=== PATIENT | female | born 1980 | race American Indian/Alaskan Native ===

== ENCOUNTER 2019-09-05 21:57 | Emergency (ER) | payer SELFPAY ==
[2019-09-05 23:21] LABS: Bilirubin,Urine NEG (Negative); Blood,Urine SM (Negative); Color,Urine Yellow (Yellow); Mucus,Urine 3+ /HPF; Protein,Urine <15 mg/dL mg/dL (Negative)
[2019-09-05 23:23] LABS: HCG Qualitative,Urine Negative (Negative)
[2019-09-06] MEDS ORDERED: KETOROLAC 30 MG/1 ML INJ IV ONE (01:00)
[2019-09-06] MEDS ORDERED: ONDANSETRON 4 MG/2 ML INJ IV ONE (01:00)
[2019-09-06] MEDS ORDERED: SODIUM CHLORIDE 0.9% 1000 ML 1,000 ML IV ONE (01:00)
[2019-09-06 01:43] LABS: Basophils % (Auto) 0.6 % (0.0-1.8); Eosinophils # (Auto) 0.1 K/mm3 (0.0-0.4); Eosinophils % (Auto) 1.1 % (0.0-4.3); Hematocrit 39.5 % (30.3-42.9); Hemoglobin 13.1 gm/dl (10.1-14.3); Lymphocytes # (Auto) 2.8 K/mm3 (1.2-5.4); Lymphocytes % (Auto) 39.7 % (13.4-35.0); Mean Corpuscular HGB Conc 33 % (30-34); Mean Corpuscular Volume 90 fl (79-97); Monocytes # (Auto) 0.5 K/mm3 (0.0-0.8); Monocytes % (Auto) 6.8 % (0.0-7.3); Platelet Count 167 K/mm3 (140-440); Red Blood Count 4.37 M/mm3 (3.65-5.03); Red Cell Distribution Width 15.1 % (13.2-15.2)
[2019-09-06 01:51] LABS: Alanine Aminotransferase 9 units/L (7-56); Albumin 4.6 g/dL (3.9-5); BUN/Creatinine Ratio 26; Blood Urea Nitrogen 13 mg/dL (7-17); Calcium 10.2 mg/dL (8.4-10.2); Hemolysis Index 10
[2019-09-06] MEDS ORDERED: metroNIDAZOLE 500 MG TAB PO ONE (03:02)
[2019-09-06] MEDS ORDERED: LIDOCAINE-MPF (1%) 10 MG/1 ML VIAL 5 ML INFILTRATI ONE (03:02)
[2019-09-06] MEDS ORDERED: ONDANSETRON 4 MG ODT TAB PO ONE (03:02)
[2019-09-06] MEDS ORDERED: HYDROcodone/ACETAMINOPHEN 7.5-325MG TAB PO ONE (03:04)
--- NOTE | 2019-09-06 04:03 | Emergency Department Report ---
<VERONICA PANDYA - Last Filed: 09/06/19 06:38> ED Female HPI - General Chief complaint: Urogenital-Female Stated complaint: PELVIC PAIN, VAG DC Source: patient Mode of arrival: Ambulatory Limitations: No Limitations - History of Present Illness Initial comments: Patient is a A4 39-year-old -Iranian female with no past medical history presents to the ED with complaint of acute onset persistent severe pelvic pain with nausea and headache for the last 2 weeks, worse in the last 2 days. Patient also complains of dyspareunia and vaginal discharge with urinary urgency and frequency. Patient denies dizziness, syncope, fever, chills, cough, change in vision, sore throat, cough, chest pain, shortness of breath, vomiting, vaginal bleeding or low back pain. MD Complaint: vaginal discharge, dysuria, pelvic pain -: Sudden, week(s) (2) Location: suprapubic, other (vaginal) Severity: severe Severity scale (0 -10): 8 Quality: sharp, aching Consistency: constant Improves with: none Worsens with: intercourse, movement Are you Now?: No Last Menstrual Period: 08/29/19 EDC: 06/04/20 Associated Symptoms: denies other symptoms, vaginal discharge, abdominal pain, dysuria. denies: vaginal bleeding, nausea/vomiting, fever/chills, loss of appetite, hematuria, rash, seizure, shortness of breath, syncope - Related Data Sexually active: Yes Previous Rx's Medication Instructions Recorded Last Taken Type Docusate Sodium [Colace CAP] 100 mg PO BID PRN #30 capsule 09/06/19 Unknown Rx Doxycycline Hyclate 100 mg PO Q12H #20 tablet. 09/06/19 Unknown Rx HYDROcodone/APAP 5-325 [[place] 1 each PO Q6HR PRN #12 tablet 09/06/19 Unknown Rx 5/325] Ibuprofen [Motrin] 600 mg PO Q8H PRN #24 tablet 09/06/19 Unknown Rx Ondansetron [Zofran Odt] 4 mg PO Q6HR PRN #15 tab.rapdis 09/06/19 Unknown Rx metroNIDAZOLE [Flagyl] 500 mg PO Q12HR #20 tab 09/06/19 Unknown Rx Allergies Allergy/AdvReac Type Severity Reaction Status Date / Time No Known Allergies Allergy Unverified 09/05/19 22:09 ED Review of Systems Constitutional: denies: chills, fever Eyes: denies: eye pain, eye discharge, vision change ENT: denies: ear pain, throat pain Respiratory: denies: cough, shortness of breath, wheezing Cardiovascular: denies: chest pain, palpitations Endocrine: no symptoms reported Gastrointestinal: abdominal pain (pelvic pain). denies: nausea, diarrhea Genitourinary: urgency, dysuria, frequency, discharge Musculoskeletal: denies: back pain, joint swelling, arthralgia Skin: denies: rash, lesions Neurological: headache. denies: weakness, paresthesias Psychiatric: denies: anxiety, depression Hematological/Lymphatic: denies: easy bleeding, easy bruising ED Past Medical Hx - Past Medical History Previous Medical History?: No - Surgical History Hx Appendectomy: Yes Additional Surgical History: LEEP - Social History Smoking Status: Never Smoker Substance Use Type: None - Medications Home Medications: Home Medications Medication Instructions Recorded Confirmed Last Taken Type Docusate Sodium [Colace CAP] 100 mg PO BID PRN #30 capsule 09/06/19 Unknown Rx Doxycycline Hyclate 100 mg PO Q12H #20 tablet. 09/06/19 Unknown Rx HYDROcodone/APAP 5-325 [[place] 1 each PO Q6HR PRN #12 tablet 09/06/19 Unknown Rx 5/325] Ibuprofen [Motrin] 600 mg PO Q8H PRN #24 tablet 09/06/19 Unknown Rx Ondansetron [Zofran Odt] 4 mg PO Q6HR PRN #15 tab.rapdis 09/06/19 Unknown Rx metroNIDAZOLE [Flagyl] 500 mg PO Q12HR #20 tab 09/06/19 Unknown Rx ED Physical Exam - General Limitations: No Limitations General appearance: alert, in no apparent distress - Head Head exam: Present: atraumatic, normocephalic, normal inspection - Eye Eye exam: Present: normal appearance, PERRL, EOMI Pupils: Present: normal accommodation - ENT ENT exam: Present: normal exam, normal orophraynx, mucous membranes moist, TM's normal bilaterally, normal external ear exam - Neck Neck exam: Present: normal inspection, full ROM - Respiratory Respiratory exam: Present: normal lung sounds bilaterally. Absent: respiratory distress, wheezes, rales, rhonchi, chest wall tenderness, accessory muscle use, decreased breath sounds, prolonged expiratory - Cardiovascular Cardiovascular Exam: Present: regular rate, normal rhythm, normal heart sounds. Absent: systolic murmur, diastolic murmur, rubs, gallop - GI/Abdominal GI/Abdominal exam: Present: soft, tenderness (Severe palpable suprapubic tenderness), guarding, normal bowel sounds. Absent: rebound, hyperactive bowel sounds, hypoactive bowel sounds, organomegaly - Speculum exam: Present: normal speculum exam, vaginal discharge, cervical discharge Bi-manual exam: Present: cervical motion tendernes, adnexal tenderness, uterine tenderness, other (Female RN present during pelvic exam) - Extremities Exam Extremities exam: Present: normal inspection, full ROM, normal capillary refill. Absent: pedal edema, joint swelling - Back Exam Back exam: Present: normal inspection, full ROM. Absent: tenderness, CVA tenderness (R), CVA tenderness (L), muscle spasm - Neurological Exam Neurological exam: Present: alert, oriented X3, CN II-XII intact, normal gait - Psychiatric Psychiatric exam: Present: normal affect, normal mood, anxious - Skin Skin exam: Present: warm, dry, intact, normal color. Absent: rash ED Medical Decision Making - Lab Data Result diagrams: 09/06/19 01:08 09/06/19 01:08 - Medical Decision Making This is a A4 39-year-old -Iranian female with no past medical history presents to the ED with complaint of acute onset persistent severe pelvic pain with nausea and headache for the last 2 weeks, worse in the last 2 days. Patient also complains of dyspareunia and vaginal discharge with urinary urgency and frequency. In the ED, patient is alert and oriented x3 and is not in any distress but anxious and appears to be in pain. Physical exam was executed exquisitely positive for acute PID with chandelier sign on pelvic exam chaperoned by a female RN Ms. Patel. Patient was treated for pain and also given normal saline 1 L IV bolus. Lab test results were reviewed and are all nonactionable. Wet prep results showed significant Gardnerella vaginalis. Patient also received empirical treatment for gonorrhea and chlamydia. On reevaluation, patient's pain is well controlled with medications. Patient was discharged home on pain medications, antibiotics for PID and was advised to follow-up with her primary care physician or [facility] physician in 7 to 10 days for reevaluation or return to the ED immediately if symptoms get worse. - Differential Diagnosis UTI; PID; STD; Pancreatitis; Tension headache ED Disposition Clinical Impression: Abdominal pain Qualifiers: Abdominal location: unspecified location Qualified Code(s): R10.9 - Unspecified abdominal pain Disposition: DC-01 TO HOME OR SELFCARE Is pt being admited?: No Does the pt Need Aspirin: No Condition: Stable Instructions: Pelvic Inflammatory Disease (ED), Bacterial Vaginosis (ED), Panc reatitis (ED), Acute Headache (ED) Additional Instructions: Take medication with food, drink plenty of fluids and follow-up with your primary care physician in 5 to 7 days for reevaluation. Return to the ED immediately if your symptoms get worse. Prescriptions: Docusate Sodium [Colace CAP] 100 mg PO BID PRN #30 capsule PRN Reason: Constipation Doxycycline Hyclate 100 mg PO Q12H #20 tablet.dr metroNIDAZOLE [Flagyl] 500 mg PO Q12HR #20 tab Ibuprofen [Motrin] 600 mg PO Q8H PRN #24 tablet PRN Reason: Pain HYDROcodone/APAP 5-325 [[place] 5/325] 1 each PO Q6HR PRN #12 tablet PRN Reason: Pain Ondansetron [Zofran Odt] 4 mg PO Q6HR PRN #15 tab.rapdis PRN Reason: Nausea Referrals: JOHANNY CALVIN MD [Staff Physician] - 3-5 Days Forms: STI Treatment and Prevention Time of Disposition: 04:09 Print Language: UPPER SORBIAN <CHIDI RODRÍGUEZ - Last Filed: 09/06/19 22:38> ED Review of Systems ROS: Stated complaint: PELVIC PAIN, VAG DC Other details as noted in HPI ED Course Vital Signs 09/05/19 09/06/19 22:07 04:15 Temperature 98.6 F Pulse Rate 74 78 Respiratory 18 18 Rate Blood Pressure 115/75 Blood Pressure 117/68 [Right] O2 Sat by Pulse 100 97 Oximetry ED Medical Decision Making - Lab Data Result diagrams: 09/06/19 01:08 09/06/19 01:08 Critical care attestation.: If time is entered above; I have spent that time in minutes in the direct care of this critically ill patient, excluding procedure time. ED Disposition Is pt being admited?: No Does the pt Need Aspirin: No
== END 2019-09-06 04:32 | disposition home or self-care (01) ==
LOC: ED 21:57
DX: R10.9 Unspecified abdominal pain (principal); R30.0 Dysuria; N89.8 Other specified noninflammatory disorders of vagina; Z90.49 Acquired absence of other specified parts of digestive tract; Z79.899 Other long term (current) drug therapy
CPT/HCPCS: 36415; 80053; 81001; 81025; 83690; 85025; 87210; 87591; 96372; 96374; 96375; 99284; J0696; J1885; J2405; J7030; Q0162

== ENCOUNTER 2020-04-12 21:17 | Emergency (ER) | payer SELFPAY ==
[2020-04-12 23:52] VITALS: BP 111/80
[2020-04-13 01:42] LABS: Basophils % (Auto) 0.6 % (0.0-1.8); Eosinophils # (Auto) 0.1 K/mm3 (0.0-0.4); Eosinophils % (Auto) 0.9 % (0.0-4.3); Hematocrit 39.2 % (30.3-42.9); Hemoglobin 12.9 gm/dl (10.1-14.3); Lymphocytes # (Auto) 2.4 K/mm3 (1.2-5.4); Lymphocytes % (Auto) 28.3 % (13.4-35.0); Mean Corpuscular HGB Conc 33 % (30-34); Mean Corpuscular Volume 90 fl (79-97); Monocytes # (Auto) 0.5 K/mm3 (0.0-0.8); Platelet Count 183 K/mm3 (140-440); Red Blood Count 4.36 M/mm3 (3.65-5.03); Red Cell Distribution Width 15.8 % (13.2-15.2)
[2020-04-13 01:46] LABS: Alanine Aminotransferase 9 units/L (7-56); Albumin 4.5 g/dL (3.9-5); Blood Urea Nitrogen 10 mg/dL (7-17); Hemolysis Index 9
[2020-04-13 01:47] LABS: BUN/Creatinine Ratio 20
[2020-04-13] MEDS ORDERED: ONDANSETRON 4 MG/2 ML INJ IV ONE ×2 (02:55→05:09)
[2020-04-13] MEDS ORDERED: SODIUM CHLORIDE 0.9% 1000 ML 1,000 ML IV ONE (02:55)
[2020-04-13] MEDS ORDERED: KETOROLAC 30 MG/1 ML INJ IV ONE (02:55)
--- NOTE | 2020-04-13 04:15 | Cat Scan Report ---
CT ABDOMEN AND PELVIS WITH IV CONTRAST INDICATION: Right lower quadrant abdominal pain TECHNIQUE: Following the administration of intravenous contrast, multiple axial CT images of the abdo men and pelvis were acquired. Sagittal and coronal reformats were obtained. All CT performed at this facility utilize dose reduction techniques including automated exposure control, iterative reconstru ction and weight based dosing when appropriate to reduce patient radiation dose to as low as reasonab ly achievable. COMPARISON: None FINDINGS: Limited imaging of the bilateral lung bases demonstrates no acute abnormality. ABDOMEN: The liver, gallbladder, spleen, pancreas, bilateral adrenal glands and bilateral kidneys show no evid ence of acute abnormality. The abdominal aorta is normal in caliber. There is no evidence of bowel ob struction or free fluid. The appendix is not visualized and there has likely been previous appendecto my. PELVIS: There is a trace amount of free fluid. There is a 1.4 cm left adnexal cyst. The urinary bladder appea rs normal. BONES AND SOFT TISSUES: Evaluation of bony structures demonstrates no evidence of acute bony abnormal ity. Soft tissue structures show no acute abnormality. IMPRESSION: 1. No CT evidence of acute inflammatory or obstructive process within the abdomen or pelvis. 2. Trace amount of free pelvic fluid which may be physiologic in a young female patient. Signer Name: Senait Ayon MD Signed: 04/13/2020 4:10 AM Workstation Name: [id number]
[2020-04-13 04:32] LABS: Bilirubin,Urine NEG (Negative); Blood,Urine NEG (Negative); Color,Urine Yellow (Yellow); Mucus,Urine 3+ /HPF; Protein,Urine <15 mg/dL mg/dL (Negative); Urobilinogen,Urine < 2.0 mg/dL (<2.0)
[2020-04-13] MEDS ORDERED: ONDANSETRON 4 MG/2 ML INJ ONE (05:05)
--- NOTE | 2020-04-13 05:22 | Emergency Department Report ---
ED Abdominal Pain HPI - General Chief Complaint: Abdominal Pain Stated Complaint: PELVIC PAIN NAUSEA HEADACHE Source: patient Mode of arrival: Ambulatory Limitations: No Limitations - History of Present Illness Initial Comments: Patient is a 39-year-old -[place] female with a history of chronic pancreatitis who presents to the ED with complaint of acute onset persistent diffuse low abdominal pain worse in the suprapubic and right lower quadrant area for the last 1 week, worse in the last 2 days. Patient states that the pain is intermittent and waxes and wanes. Patient states that she initially thought that the pain could be from her pancreatitis or ovarian cysts. Patient states that the pain especially got worse in the last 12 hours such that she could not sleep because of persistent pain. Patient is a complaints of nausea and vaginal discharge with malodorous smell. Patient denies vaginal bleeding, vaginal discharge, dysuria, urinary frequency and urgency, vomiting, chest pain, shortness of breath, diarrhea, heavy lifting, traumatic injury or low back pain. MD Complaint: abdominal pain (RLQ pain) -: Sudden, week(s) (1) Location: RLQ, suprapubic Radiation: RLQ, suprapubic Migration to: no migration Severity scale (0 -10): 5 Quality: cramping, sharp Consistency: constant Improves With: nothing Worsens With: nothing Associated Symptoms: denies other symptoms, nausea. denies: vomiting, diarrhea, fever, chills, dysuria, hematemesis, hematochezia, melena, syncope Treatments Prior to Arrival: NSAIDs - Related Data LMP Date: 03/30/20 Previous Rx's Medication Instructions Recorded Last Taken Type Docusate Sodium [Colace CAP] 100 mg PO BID PRN #30 capsule 09/06/19 Unknown Rx Doxycycline Hyclate 100 mg PO Q12H #20 tablet. 09/06/19 Unknown Rx HYDROcodone/APAP 5-325 [[place] 1 each PO Q6HR PRN #12 tablet 09/06/19 Unknown Rx 5/325] Ibuprofen [Motrin 600 MG tab] 600 mg PO Q8H PRN #30 tablet 04/13/20 Unknown Rx Ondansetron [Zofran ODT TAB] 4 mg PO Q6HR PRN #15 tab.rapdis 04/13/20 Unknown Rx metroNIDAZOLE [Flagyl TAB] 500 mg PO Q12HR #14 tab 04/13/20 Unknown Rx traMADoL [Ultram] 50 mg PO Q6HR PRN #12 tablet 04/13/20 Unknown Rx Allergies Allergy/AdvReac Type Severity Reaction Status Date / Time No Known Allergies Allergy Unverified 09/05/19 22:09 ED Review of Systems ROS: Stated complaint: PELVIC PAIN NAUSEA HEADACHE Other details as noted in HPI Constitutional: denies: chills, fever Eyes: denies: eye pain, eye discharge, vision change ENT: denies: ear pain, throat pain Respiratory: denies: cough, shortness of breath, wheezing Cardiovascular: denies: chest pain, palpitations Endocrine: no symptoms reported Gastrointestinal: abdominal pain (Suprapubic and right lower quadrant pain), nausea. denies: diarrhea Genitourinary: discharge. denies: urgency, dysuria Musculoskeletal: denies: back pain, joint swelling, arthralgia Skin: denies: rash, lesions Neurological: denies: headache, weakness, paresthesias Psychiatric: denies: anxiety, depression Hematological/Lymphatic: denies: easy bleeding, easy bruising ED Past Medical Hx - Surgical History Hx Appendectomy: Yes Additional Surgical History: LEEP - Social History Smoking Status: Never Smoker - Medications Home Medications: Home Medications Medication Instructions Recorded Confirmed Last Taken Type Docusate Sodium [Colace CAP] 100 mg PO BID PRN #30 capsule 09/06/19 Unknown Rx Doxycycline Hyclate 100 mg PO Q12H #20 tablet.dr 09/06/19 Unknown Rx HYDROcodone/APAP 5-325 [[place] 1 each PO Q6HR PRN #12 tablet 09/06/19 Unknown Rx 5/325] Ibuprofen [Motrin 600 MG tab] 600 mg PO Q8H PRN #30 tablet 04/13/20 Unknown Rx Ondansetron [Zofran ODT TAB] 4 mg PO Q6HR PRN #15 tab.rapdis 04/13/20 Unknown Rx metroNIDAZOLE [Flagyl TAB] 500 mg PO Q12HR #14 tab 04/13/20 Unknown Rx traMADoL [Ultram] 50 mg PO Q6HR PRN #12 tablet 04/13/20 Unknown Rx ED Physical Exam - General Limitations: No Limitations General appearance: alert, in no apparent distress - Head Head exam: Present: atraumatic, normocephalic, normal inspection - Eye Eye exam: Present: normal appearance, PERRL, EOMI Pupils: Present: normal accommodation - ENT ENT exam: Present: normal exam, normal orophraynx, mucous membranes moist, TM's normal bilaterally, normal external ear exam - Neck Neck exam: Present: normal inspection, full ROM - Respiratory Respiratory exam: Present: normal lung sounds bilaterally. Absent: respiratory distress, wheezes, rales, stridor, chest wall tenderness, accessory muscle use, decreased breath sounds, prolonged expiratory - Cardiovascular Cardiovascular Exam: Present: regular rate, normal rhythm, normal heart sounds. Absent: systolic murmur, diastolic murmur, rubs, gallop - GI/Abdominal GI/Abdominal exam: Present: soft, tenderness (Palpable suprapubic and right lower quadrant tenderness), normal bowel sounds. Absent: guarding, rebound, hyperactive bowel sounds, hypoactive bowel sounds, organomegaly - Bi-manual exam: Present: other (Pelvic exam deferred) - Extremities Exam Extremities exam: Present: normal inspection, full ROM, normal capillary refill - Back Exam Back exam: Present: normal inspection, full ROM. Absent: tenderness, CVA tenderness (R), CVA tenderness (L), muscle spasm, paraspinal tenderness, vertebral tenderness - Neurological Exam Neurological exam: Present: alert, oriented X3, CN II-XII intact, normal gait, reflexes normal - Psychiatric Psychiatric exam: Present: normal affect, normal mood - Skin Skin exam: Present: warm, dry, intact, normal color. Absent: rash ED Course Vital Signs 04/12/20 04/13/20 23:07 06:04 Temperature 98.2 F Pulse Rate 69 64 Respiratory 18 16 Rate Blood Pressure 111/80 O2 Sat by Pulse 100 100 Oximetry ED Medical Decision Making - Lab Data Result diagrams: 04/13/20 00:49 04/13/20 00:49 - Radiology Data Radiology results: report reviewed, image reviewed Findings [facility] [address] [place] [address] Cat Scan Report Signed Patient: RANDALL CHAVEZ MR#: [id number] : 1980 Acct:[id number] Age/Sex: 39 / F ADM Date: 04/12/20 Loc: ED Attending Dr: Ordering Physician: CRIS BARNES Date of Service: 04/13/20 Procedure(s): CT abdomen pelvis w con Accession Number(s): [id number] cc: CRIS BARNES CT ABDOMEN AND PELVIS WITH IV CONTRAST INDICATION: Right lower quadrant abdominal pain TECHNIQUE: Following the administration of intravenous contrast, multiple axial CT images of the abdomen and pelvis were acquired. Sagittal and coronal reformats were obtained. All CT performed at this facility utilize dose reduction techniques including automated exposure control, iterative reconstruction and weight based dosing when appropriate to reduce patient radiation dose to as low as reasonably achievable. COMPARISON: None FINDINGS: Limited imaging of the bilateral lung bases demonstrates no acute abnormality. ABDOMEN: The liver, gallbladder, spleen, pancreas, bilateral adrenal glands and bilateral kidneys show no evidence of acute abnormality. The abdominal aorta is normal in caliber. There is no evidence of bowel obstruction or free fluid. The appendix is not visualized and there has likely been previous appendectomy. PELVIS: There is a trace amount of free fluid. There is a 1.4 cm left adnexal cyst. The urinary bladder appears normal. BONES AND SOFT TISSUES: Evaluation of bony structures demonstrates no evidence of acute bony abnormality. Soft tissue structures show no acute abnormality. IMPRESSION: 1. No CT evidence of acute inflammatory or obstructive process within the a bdomen or pelvis. 2. Trace amount of free pelvic fluid which may be physiologic in a young female patient. Signer Name: Senait Ayon MD Signed: 04/13/2020 4:10 AM Workstation Name: [id number] Transcribed By: EB Dictated By: Senait Ayon MD Electronically Authenticated By: Senait Ayon MD Signed Date/Time: 04/13/20409 DD/ 5 TD/TT: - Medical Decision Making This is a 39-year-old -[place] female with a history of chronic pancreatitis who presents to the ED with complaint of acute onset persistent diffuse low abdominal pain worse in the suprapubic and right lower quadrant area for the last 1 week, worse in the last 2 days. Patient states that the pain is intermittent and waxes and wanes. Patient states that she initially thought that the pain could be from her pancreatitis or ovarian cysts. Patient states that the pain especially got worse in the last 12 hours such that she could not sleep because of persistent pain. Patient is a complaints of nausea and vaginal discharge with malodorous smell. In the ED, patient is alert and oriented x3 and is not in distress. Patient however appears to be in pain. Lab test results were reviewed and are all nonactionable except for mildly elevated lipas e levels of 63 and urinalysis is also unremarkable. Patient was treated for pain in the ED and was given antiemetics in the ED. Abdomen pelvis CT scan with contrast showed no CT evidence of acute inflammatory or obstructive process within the abdomen or pelvis but trace amount of free pelvic fluid which may be physiologic in a young female patient. On reevaluation, patient's pain is well controlled medications. Patient was discharged home on pain medications and advised to follow-up with her primary care physician or [facility] physician in 5 to 7 days for reevaluation or return to the ED immediately if symptoms get worse. - Differential Diagnosis Ovarian cyst; URI; PID; Dysmenorrhea; Fibroids; Colitis Critical care attestation.: If time is entered above; I have spent that time in minutes in the direct care of this critically ill patient, excluding procedure time. ED Disposition Clinical Impression: Abdominal pain in female, Cyst of left ovary Chronic pancreatitis Qualifiers: Pancreatitis type: idiopathic Qualified Code(s): K86.1 - Other chronic pancreatitis Disposition: DC- TO HOME OR SELFCARE Is pt being admited?: No Does the pt Need Aspirin: No Condition: Stable Instructions: Chronic Pancreatitis, Abdominal Pain, Adult, [id number], Ovarian Cyst, Abdominal Pain (ED) Additional Instructions: All lab test results were reviewed and are all nonactionable except for elevated lipase levels consistent with chronic pancreatitis. Abdomen pelvis CT scan with contrast showed left ovarian cyst, but otherwise no acute abnormalities. Therefore take medications with food, drink plenty of fluids and follow-up with your primary care physician in 5 to 7 days for reevaluation. Return to the ED immediately if symptoms get worse. Prescriptions: metroNIDAZOLE [Flagyl TAB] 500 mg PO Q12HR #14 tab Ibuprofen [Motrin 600 MG tab] 600 mg PO Q8H PRN #30 tablet PRN Reason: Pain traMADoL [Ultram] 50 mg PO Q6HR PRN #12 tablet PRN Reason: Pain Ondansetron [Zofran ODT TAB] 4 mg PO Q6HR PRN #15 tab.rapdis PRN Reason: Nausea Referrals: [facility] [Provider Group] - 3-5 Days Forms: Work/School Release Form(ED) Time of Disposition: 05:25 Print Language: HAITIAN
== END 2020-04-13 06:04 | disposition home or self-care (01) ==
LOC: ED 21:17
DX: N83.292 Other ovarian cyst, left side (principal); K86.1 Other chronic pancreatitis; Z90.49 Acquired absence of other specified parts of digestive tract
CPT/HCPCS: 36415; 74177; 80053; 81001; 83690; 84703; 85025; 96361; 96374; 96375; 99284; J1885; J2405; J7030; Q9967

== ENCOUNTER 2020-07-03 16:54 | Emergency (ER) | payer SELFPAY ==
[2020-07-03 17:03] VITALS: BP 118/75
[2020-07-03 19:07] LABS: Bacteria,Urine 1+ /HPF (Negative); Bilirubin,Urine NEG (Negative); Blood,Urine NEG (Negative); Color,Urine Yellow (Yellow); Mucus,Urine FEW /HPF; Protein,Urine <15 mg/dL mg/dL (Negative); RBC,Urine < 1.0 /HPF (0.0-6.0); Urobilinogen,Urine < 2.0 mg/dL (<2.0); WBC,Urine < 1.0 /HPF (0.0-6.0)
[2020-07-03] MEDS ORDERED: LIDOCAINE-MPF (1%) 10 MG/1 ML VIAL 5 ML INFILTRATI ONE (19:10)
[2020-07-03 19:13] LABS: HCG Qualitative,Urine Negative (Negative)
--- NOTE | 2020-07-03 20:15 | Ultrasound Report ---
Pelvic Ultrasound HISTORY: pelvic pain, right adnexal pain. TECHNIQUE: Grayscale and color imaging performed. COMPARISON: CT abdomen/pelvis from 04/13/2020 FINDINGS: Transabdominal and endovaginal imaging was performed. Uterus measures 8.1 x 5.1 x 5.2 cm with endometrial echocomplex measuring 1 cm. Small nabothian cysts are present. Right ovary appears unremarkable. Left ovary contains small follicles but is otherwise unremarkable. IMPRESSION: 1. No acute abnormality identified. 2. Small nabothian cysts and left-sided ovarian follicles, physiologic. Signer Name: Michoacano Barahona MD Signed: 07/03/2020 8:10 PM Workstation Name: [id number]
--- NOTE | 2020-07-03 20:31 | Emergency Department Report ---
ED Female HPI - General Chief complaint: Abdominal Pain Stated complaint: HEADACHE/NAUSEA/DISCHARGE,ODOR Time Seen by Provider: 07/03/20 18:24 Source: patient Mode of arrival: Ambulatory Limitations: No Limitations - History of Present Illness Initial comments: Patient is a 40-year-old female presents emergency room with complaints of pelvic pain for a month and a half. She has been evaluated in the emergency department on 2 different occasions for the same complaint. She had a CT abdomen pelvis with no acute process in March 2020. She also had a pelvic examination in August 2019 which showed no signs of gonorrhea or chlamydia. She has not followed up with [facility] or primary care physician. She states that she has a small amount of white vaginal discharge. she denies any fever, vomiting, diarrhea, back pain, dysuria, vaginal itching or burning. She has a past medical history of migraines which she has seen a primary care provider in the past for, she states that she has had intermittent migraines for 2 weeks, she denies any head trauma, vision changes, numbness, weakness, neck stiffness, fever. She states that her migraines feel typical of her previous migraines. No allergies to medications. She states that she is sexually active and reports that she uses protection. - Related Data Previous Rx's Medication Instructions Recorded Last Taken Type Docusate Sodium [Colace CAP] 100 mg PO BID PRN #30 capsule 09/06/19 Unknown Rx Doxycycline Hyclate 100 mg PO Q12H #20 tablet. 09/06/19 Unknown Rx HYDROcodone/APAP 5-325 [[place] 1 each PO Q6HR PRN #12 tablet 09/06/19 Unknown Rx 5/325] Ibuprofen [Motrin 600 MG tab] 600 mg PO Q8H PRN #30 tablet 04/13/20 Unknown Rx Ondansetron [Zofran ODT TAB] 4 mg PO Q6HR PRN #15 tab.rapdis 04/13/20 Unknown Rx metroNIDAZOLE [Flagyl TAB] 500 mg PO Q12HR #14 tab 04/13/20 Unknown Rx traMADoL [Ultram] 50 mg PO Q6HR PRN #12 tablet 04/13/20 Unknown Rx Butalb/Acetaminophen/Caffeine 1 cap PO Q8HR PRN #12 cap 07/03/20 Unknown Rx [Fioricet 50-300-40 mg CAP] Doxycycline Hyclate [Doxycycline 100 mg PO BID 7 Days #14 tab 07/03/20 Unknown Rx Hyclate TAB] Ondansetron [Zofran Odt] 4 mg PO Q8HR PRN #10 tab.rapdis 07/03/20 Unknown Rx Allergies Allergy/AdvReac Type Severity Reaction Status Date / Time No Known Allergies Allergy Unverified 09/05/19 22:09 ED Review of Systems ROS: Stated complaint: HEADACHE/NAUSEA/DISCHARGE,ODOR Other details as noted in HPI Comment: All other systems reviewed and negative ED Past Medical Hx - Past Medical History Previous Medical History?: No - Surgical History Hx Appendectomy: Yes Additional Surgical History: LEEP - Social History Smoking Status: Never Smoker Substance Use Type: None - Medications Home Medications: Home Medications Medication Instructions Recorded Confirmed Last Taken Type Docusate Sodium [Colace CAP] 100 mg PO BID PRN #30 capsule 09/06/19 Unknown Rx Doxycycline Hyclate 100 mg PO Q12H #20 tablet. 09/06/19 Unknown Rx HYDROcodone/APAP 5-325 [[place] 1 each PO Q6HR PRN #12 tablet 09/06/19 Unknown Rx 5/325] Ibuprofen [Motrin 600 MG tab] 600 mg PO Q8H PRN #30 tablet 04/13/20 Unknown Rx Ondansetron [Zofran ODT TAB] 4 mg PO Q6HR PRN #15 tab.rapdis 04/13/20 Unknown Rx metroNIDAZOLE [Flagyl TAB] 500 mg PO Q12HR #14 tab 04/13/20 Unknown Rx traMADoL [Ultram] 50 mg PO Q6HR PRN #12 tablet 04/13/20 Unknown Rx Butalb/Acetaminophen/Caffeine 1 cap PO Q8HR PRN #12 cap 07/03/20 Unknown Rx [Fioricet 50-300-40 mg CAP] Doxycycline Hyclate [Doxycycline 100 mg PO BID 7 Days #14 tab 07/03/20 Unknown Rx Hyclate TAB] Ondansetron [Zofran Odt] 4 mg PO Q8HR PRN #10 tab.rapdis 07/03/20 Unknown Rx ED Physical Exam - General Limitations: No Limitations General appearance: alert, in no apparent distress - Head Head exam: Present: atraumatic, normocephalic - Eye Eye exam: Present: normal appearance - ENT ENT exam: Present: mucous membranes moist - Respiratory Respiratory exam: Present: normal lung sounds bilaterally. Absent: respiratory distress, wheezes, rales, rhonchi, stridor, chest wall tenderness, accessory muscle use, decreased breath sounds, prolonged expiratory - Cardiovascular Cardiovascular Exam: Present: regular rate, normal rhythm, normal heart sounds. Absent: systolic murmur, diastolic murmur, rubs, gallop - GI/Abdominal GI/Abdominal exam: Present: soft, normal bowel sounds. Absent: distended, tenderness, guarding, rebound, rigid - External exam: Present: normal external exam. Absent: erythema, swelling, lesions, lacerations, ecchymosis, bleeding Speculum exam: Present: normal speculum exam, other (tire mold tester:gillian funk). Absent: erythema, vaginal discharge, cervical discharge, vaginal bleeding, foreign body, tissue, laceration Bi-manual exam: Present: adnexal tenderness (mild right). Absent: cervical motion tendernes, adnexal mass, uterine enlargement, uterine tenderness - Neurological Exam Neurological exam: Present: alert, oriented X3, CN II-XII intact, normal gait. Absent: motor sensory deficit - Psychiatric Psychiatric exam: Present: normal affect, normal mood - Skin Skin exam: Present: warm, dry, intact ED Course Vital Signs 07/03/20 17:02 Temperature 98.5 F Pulse Rate 85 Respiratory 16 Rate Blood Pressure 118/75 [Left] O2 Sat by Pulse 98 Oximetry ED Medical Decision Making - Lab Data Lab Results 07/03/20 Range/Units Unknown Urine Color Yellow (Yellow) Urine Turbidity Clear (Clear) Urine pH 7.0 (5.0-7.0) Ur Specific [place] 1.015 (1.003-1.030) Urine Protein <15 mg/dl (Negative) mg/dL Urine Glucose (UA) Neg (Negative) mg/dL Urine Ketones Tr (Negative) mg/dL Urine Blood Neg (Negative) Urine Nitrite Neg (Negative) Urine Bilirubin Neg (Negative) Urine Urobilinogen < 2.0 (<2.0) mg/dL Ur Leukocyte Esterase Neg (Negative) Urine WBC (Auto) < 1.0 (0.0-6.0) /HPF Urine RBC (Auto) < 1.0 (0.0-6.0) /HPF U Epithel Cells (Auto) 6.0 (0-13.0) /HPF Urine Bacteria (Auto) 1+ (Negative) /HPF Urine Mucus Few /HPF Urine HCG, Qual Negative (Negative) - Radiology Data Radiology results: report reviewed Ordering Physician: CRIS AMAYA Date of Service: 07/03/20 Procedure(s): US transvaginal Accession Number(s): [id number] cc: CRIS AMAYA Pelvic Ultrasound HISTORY: pelvic pain, right adnexal pain. TECHNIQUE: Grayscale and color imaging performed. COMPARISON: CT abdomen/pelvis from 04/13/2020 FINDINGS: Transabdominal and endovaginal imaging was performed. Uterus measures 8.1 x 5.1 x 5.2 cm with endometrial echocomplex measuring 1 cm. Small nabothian cysts are present. Right ovary appears unremarkable. Left ovary contains small follicles but is otherwise unremarkable. IMPRESSION: 1. No acute abnormality identified. 2. Small nabothian cysts and left-sided ovarian follicles, physiologic. Signer Name: Michoacano Barahona MD Signed: 07/03/2020 8:10 PM Workstation Name: [id number] Transcribed By: AMY Dictated By: Michoacano Barahona MD Electronically Authenticated By: Michoacano Barahona MD Signed Date/Time: 07/03/202009 DD/ 05 TD/TT: - Medical Decision Making Patient is a 40-year-old female presents emergency room with complaints of pelvic pain for a month and a half. She has been evaluated in the emergency department on 2 different occasions for the same complaint. She had a CT abdomen pelvis with no acute process in March 2020. She also had a pelvic examination in August 2019 which showed no signs of gonorrhea or chlamydia. She has not followed up with [facility] or primary care physician. She states that she has a small amount of white vaginal discharge. she denies any fever, vomiting, diarrhea, back pain, dysuria, vaginal itching or burning. She has a past medical history of migraines which she has seen a primary care provider in the past for, she states that she has had intermittent migraines for 2 weeks, she denies any head trauma, vision changes, numbness, weakness, neck stiffness, fever. She states that her migraines feel typical of her previous migraines. No allergies to medications. She states that she is sexually active and reports that she uses protection. Vitals are normal. On exam no abdominal tenderness on exam, no guarding, no rebound, no rigidity, normal bowel sounds, no peritoneal signs, tire mold tester GILLIAN Funk, no CMT, mild right adnexal tenderness outpatient, no adnexal masses, no significant vaginal cervical discharge, no erythema of the cervix, do not suspect PID. As of UTI. Urine is negative. Wet prep is negative. G/C swab sent. Offered patient prophylactic treatment for G/C. and she states that she would like treatment, and given ceftriaxone IM and a prescription for doxycycline. pelvic US: 1. No acute abnormality identified. 2. Small nabothian cysts and left-sided ovarian follicles, physiologic. Discussed all results with patient discussed the importance of follow-up. Patient given prescription for doxycycline, Zofran, Fioricet. Advised patient Please take medication as prescribed. Increase your water intake. Please follow-up with medical records in 1 week for results of your tests you have been treated for these today. Please have any partner tested and treated as well. Avoid sexual intercourse. Please follow-up with a clinic or the health department or [facility] for full STD panel. Please follow-up with [facility] CO[facility] regarding your chronic pelvic pain. Return to emergency room for any new or worsening symptoms. Critical care attestation.: If time is entered above; I have spent that time in minutes in the direct care of this critically ill patient, excluding procedure time. ED Disposition Clinical Impression: Pelvic pain, Vaginal discharge, Concern about STD in female without diagnosis Migraine headache Qualifiers: Migraine type: unspecified Status migrainosus presence: without status migrainosus Intractability: not intractable Qualified Code(s): G43.909 - Migraine, unspecified, not intractable, without status migrainosus Disposition: DC-01 TO HOME OR SELFCARE Is pt being admited?: No Does the pt Need Aspirin: No Condition: Stable Instructions: Migraine Headache, [id number], Pelvic Pain, Female, [id number], Abdominal Pain (ED) Additional Instructions: Please take medication as prescribed. Increase your water intake. Please follow-up with medical records in 1 week for results of your tests you have been treated for these today. Please have any partner tested and treated as well. Avoid sexual intercourse. Please follow-up with a clinic or the health department or [facility] CO[facility] for full STD panel. Please follow-up with [facility] COORDINATOR regarding your chronic pelvic pain. Return to emergency room for any new or worsening symptoms. Prescriptions: Doxycycline Hyclate [Doxycycline Hyclate TAB] 100 mg PO BID 7 Days #14 tab Butalb/Acetaminophen/Caffeine [Fioricet 50-300-40 mg CAP] 1 cap PO Q8HR PRN #12 cap PRN Reason: headache Ondansetron [Zofran Odt] 4 mg PO Q8HR PRN #10 tab.rapdis PRN Reason: nausea/vomiting Referrals: PRIMARY CARE, [Primary Care Provider] - 2-3 Days [facility] [Provider Group] - 2-3 Days [facility] [Provider Group] - 2-3 Days [facility] [Outside] - 2-3 Days Forms: Work/School Release Form(ED) Time of Disposition: 20:33 Print Language: SAMI
== END 2020-07-03 20:10 | disposition home or self-care (01) ==
LOC: ED 16:54
DX: G43.909 Migraine, unspecified, not intractable, without status migrainosus (principal); N89.8 Other specified noninflammatory disorders of vagina; R10.2 Pelvic and perineal pain; Z79.899 Other long term (current) drug therapy; Z90.49 Acquired absence of other specified parts of digestive tract; Z71.1 Person with feared health complaint in whom no diagnosis is made
CPT/HCPCS: 76830; 76856; 81001; 81025; 87210; 87591; 96372; 99284; J0696